=== PATIENT | female | born 2000 | race Caucasian/White ===

== ENCOUNTER 2018-07-30 16:00 | Emergency (ER) | payer MEDICAID, OTHER ==
[2018-07-30 17:27] VITALS: RESP 18; O2SAT 99
[2018-07-30 18:24] LABS: BASO # 0.1 K/uL (0.0-0.2); BASO % 0.7 % (0.0-2.0); EOS # 0.1 K/uL (0.0-0.7); EOS % 1.7 % (0.0-4.0); HEMOGLOBIN 12.8 g/dL (12.0-16.0); LYMPH # 2.1 K/uL (1.0-4.3); LYMPH % 28.6 % (20.0-40.0); MEAN CELL VOLUME 97.1 fl (81.0-99.0); MEAN CORPUSCULAR HEMOGLOBIN 33.2 pg (27.0-31.0); MEAN CORPUSCULAR HGB CONC 34.2 g/dL (33.0-37.0); MEAN PLATELET VOLUME 7.9 fl (7.2-11.7); MONO # 0.7 K/uL (0.0-0.8); MONO % 9.1 % (0.0-10.0); NEUT # 4.4 K/uL (1.8-7.0); NEUT % 59.9 % (50.0-75.0); NRBC % 0.1 % (0.0-0.0); RBC 3.87 Mil/uL (3.80-5.20); RED CELL DISTRIBUTION WIDTH 12.6 % (11.5-14.5); WHITE BLOOD COUNT 7.3 K/uL (4.8-10.8)
[2018-07-30 18:32] LABS: BLOOD UREA NITROGEN 10 mg/dl (7-17); CALCIUM 9.1 mg/dL (8.4-10.2); GFR NON-AFRICAN AMERICAN > 60
--- NOTE | 2018-07-30 20:07 | ED PDOC ---
HPI: General Adult Time Seen by Provider: 07/30/18 17:25 Chief Complaint (Nursing): ENT Problem Chief Complaint (Provider): Throat discomfort History Per: Patient History/Exam Limitations: no limitations Additional Complaint(s): 18 y/o F with no significant PMH who presents with throat discomfort X 1 month, worse over the past few days. Pt states that she feels something "stuck" in her throat. She cannot recall if she swallowed anything like a bone but is having some difficult swallowing. Denies lisa pain, hematemesis or hx of thyroid disease. Past Medical History Reviewed: Historical Data, Nursing Documentation, Vital Signs Vital Signs: Last Vital Signs Temp 98.5 F 07/30/18 17:24 Pulse 70 07/30/18 17:24 Resp 18 07/30/18 17:24 BP 110/82 07/30/18 17:24 Pulse Ox 99 07/30/18 17:24 Primary Care Provider: Elvia Liriano - Medical History PMH: No Chronic Diseases - Family History Family History: States: Unknown Family Hx - Home Medications Home Medications: Ambulatory Orders Medication Instructions Recorded Ibuprofen [Motrin] 400 mg PO Q6H PRN #20 tab 12/04/13 - Allergies Allergies/Adverse Reactions: Allergies Allergy/AdvReac Type Severity Reaction Status Date / Time No Known Allergies Allergy Unverified 07/30/18 17:24 Review of Systems Constitutional: Negative for: Fever, Chills ENT: Positive for: Throat Pain. Negative for: Ear Pain, Nose Discharge, Mouth Swelling, Throat Swelling Physical Exam - Reviewed Nursing Documentation Reviewed: Yes Vital Signs Reviewed: Yes - Physical Exam Appears: Positive for: Well Head Exam: Positive for: ATRAUMATIC Skin: Positive for: Normal Color ENT: Positive for: Normal ENT Inspection, Other (thyroid exam unremarkable) Neck: Positive for: Normal, Painless ROM Cardiovascular/Chest: Positive for: Regular Rate, Rhythm Respiratory: Positive for: Normal Breath Sounds Lymphatic: Positive for: Normal Exam Neurological/Psych: Positive for: Awake, Alert, Oriented - Laboratory Results Result Diagrams: 07/30/18 18:19 07/30/18 18:19 - ECG O2 Sat by Pulse Oximetry: 99 Medical Decision Making Medical Decision Making: Neck soft tissue x-ray ED urine CBC, CMP, TSH, free T3 and T4 Neck soft tissue x-ray read by me: no acute abnormality appreciated. Disposition - Clinical Impression Clinical Impression: Foreign body sensation in throat - Patient ED Disposition Is Patient to be Admitted: No Counseled Patient/Family Regarding: Studies Performed, Diagnosis - Disposition Referrals: Jagjit Eckert MD [Staff Provider] - Fransisco Morales MD [Family Provider] - Disposition: Routine/Home Disposition Time: 21:11 Condition: STABLE Additional Instructions: Follow up with your primary care doctor for further evaluation of symptoms as you may need a referral to an ear, nose and throat doctor or color paste mixer. Forms: [employer] ([employer]) Print Language: ENGLISH
[2018-07-30 21:12] VITALS: BP 122/80; PULSE 78; TEMP 98
--- NOTE | 2018-07-31 12:53 | RAD ---
Date of service: 07/30/2018 HISTORY: COMPARISON: No comparison available. TECHNIQUE: 2 views obtained. FINDINGS: No fracture or subluxation. Vertebral body are well maintained in height. No significant appearing disc space narrowing. Airways appear unremarkable. IMPRESSION: No radiopaque foreign body or gross airway compromise appreciated on this exam. No suspect osseous lytic pathology
== END 2018-07-30 21:11 | disposition home or self-care (01) ==
LOC: H.ER 16:00
DX: R09.89 Other specified symptoms and signs involving the circulatory and respiratory systems (principal); R13.10 Dysphagia, unspecified